=== PATIENT | male | born 1970 | race Caucasian/White ===

== ENCOUNTER → 2016-08-05 | Outpatient (CLI) | payer BC ==
[2016-08-05 09:27] LABS: ALT 53 U/L (21-72); AST 25 U/L (17-59); Alkaline Phosphatase 79 U/L (38-126); Anion Gap 12 mmol/L; Blood Urea Nitrogen 16 mg/dL (9-20); Calcium 9.6 mg/dL (8.4-10.2); Carbon Dioxide 29 mmol/L (22-30); Chloride 100 mmol/L (98-107); Cholesterol 221 mg/dL (<200); Glucose 195 mg/dL (74-99); HDL Cholesterol 31 mg/dL (40-60); Non-African American GFR(MDRD) >60 (>60 ml/min/1.73 sqM); Potassium 4.8 mmol/L (3.5-5.1); Sodium 141 mmol/L (137-145); Total Bilirubin 1.1 mg/dL (0.2-1.3); Total Protein 7.4 g/dL (6.3-8.2); Triglycerides 379 mg/dL (<150)
== END | disposition home or self-care (01) ==
LOC: LABWHC1 08:33
PROVIDERS: ATTEND Internal Medicine Endocrinology, Diabetes & Metabolism
DX: E10.65 Type 1 diabetes mellitus with hyperglycemia (principal); E03.8 Other specified hypothyroidism
CPT/HCPCS: 36415; 80053; 80061; 82043; 84443

== ENCOUNTER → 2017-03-03 | Outpatient (CLI) | payer BC ==
[2017-03-03 08:47] LABS: AST 28 U/L (17-59); Blood Urea Nitrogen 14 mg/dL (9-20); Calcium 9.4 mg/dL (8.4-10.2); Carbon Dioxide 30 mmol/L (22-30); Cholesterol 167 mg/dL (<200); Glucose 166 mg/dL (74-99); Total Bilirubin 0.8 mg/dL (0.2-1.3); Triglycerides 308 mg/dL (<150)
[2017-03-03 08:48] LABS: ALT 51 U/L (21-72); Alkaline Phosphatase 76 U/L (38-126); Anion Gap 11 mmol/L; Chloride 100 mmol/L (98-107); HDL Cholesterol 31 mg/dL (40-60); LDL Cholesterol,Calculated 74 mg/dL (0-99); Potassium 4.7 mmol/L (3.5-5.1); Sodium 141 mmol/L (137-145)
== END | disposition home or self-care (01) ==
LOC: LABWHC1 07:32
PROVIDERS: ATTEND Internal Medicine Endocrinology, Diabetes & Metabolism
DX: E03.8 Other specified hypothyroidism (principal); E10.65 Type 1 diabetes mellitus with hyperglycemia
CPT/HCPCS: 36415; 80053; 80061; 84443

== ENCOUNTER → 2017-06-17 | Outpatient (CLI) | payer BC ==
[2017-06-17 08:30] LABS: ALT 45 U/L (21-72); AST 29 U/L (17-59); Albumin 4.3 g/dL (3.5-5.0); Alkaline Phosphatase 75 U/L (38-126); Anion Gap 11 mmol/L; Blood Urea Nitrogen 17 mg/dL (9-20); Calcium 9.8 mg/dL (8.4-10.2); Carbon Dioxide 33 mmol/L (22-30); Chloride 99 mmol/L (98-107); Cholesterol 167 mg/dL (<200); Glucose 158 mg/dL (74-99); HDL Cholesterol 35 mg/dL (40-60); LDL Cholesterol,Calculated 80 mg/dL (0-99); Potassium 5.4 mmol/L (3.5-5.1); Sodium 143 mmol/L (137-145); Total Bilirubin 1.1 mg/dL (0.2-1.3); Total Protein 7.4 g/dL (6.3-8.2); Triglycerides 262 mg/dL (<150)
[2017-06-17 17:52] LABS: Hemoglobin A1C 7.9 % (4.0-6.0)
== END | disposition home or self-care (01) ==
LOC: LABWHC1 07:49
PROVIDERS: ATTEND Internal Medicine Endocrinology, Diabetes & Metabolism
DX: E10.65 Type 1 diabetes mellitus with hyperglycemia (principal); E03.8 Other specified hypothyroidism
CPT/HCPCS: 36415; 80053; 80061; 82043; 82570; 83036; 84443

== ENCOUNTER 2017-07-06 23:49 | Emergency (ER) | payer BC ==
[2017-07-06 23:59] VITALS: BP 166/97; PULSE 77; RESP 18; TEMP 98
[2017-07-07] MEDS ORDERED: PROPARACAINE 0.5% OPHTH DROPS 15 ML BTL BOTH EYES STA (00:04)
[2017-07-07] MEDS ORDERED: IBUPROFEN 400 MG TAB PO STA (00:34)
--- NOTE | 2017-07-07 00:34 | ED ---
Eye Problem HPI - General Chief complaint: Eye Problems Stated complaint: EYE PROBLEMS Time Seen by Provider: 07/07/17 00:02 Source: patient, family Mode of arrival: ambulatory Limitations: no limitations - History of Present Illness Initial comments: This patient is a 47-year-old man who presents to be evaluated for redness, burning, and integrity feeling to his eyes. The patient states that he had changed the lamp of his UV treatment light. He states that this involved a fair amount of shining the light on his face while it was calibrated. Later in the evening, the patient's daughter noted that his eyes were red. Over the course of the last hour to 2 he has had worsening of a gritty feeling and pain. Patient denies headache. Denies change in vision. No nausea or vomiting. MD chief complaint: eye pain, eye redness -: hour(s) Onset Description: gradual Location: both eyes Place: home If Injury: UV exposure Eye Symptoms: burning, redness, foreign body sensation Severity: moderate Consistency: constant Associated Symptoms: none Treatments Prior to Arrival: none - Related Data Home Medications Medication Instructions Recorded Confirmed Insulin Aspart [NovoLOG] 0 units SQ ACHS 07/06/17 07/07/17 Insulin Detemir [Levemir] 1 unit SQ DAILY 07/06/17 07/07/17 Meclizine [Antivert] 25 mg PO BID 07/06/17 07/07/17 Pravastatin Sodium [Pravachol] 20 mg PO HS 07/07/17 07/07/17 Previous Rx's Medication Instructions Recorded Diclofenac 0.1% Ophth Soln 1 drops BOTH EYES QID PRN #3.5 ml 07/07/17 [Voltaren 0.1% Ophth Soln] Allergies Allergy/AdvReac Type Severity Reaction Status Date / Time ramipril [From Altace] Allergy Swelling Verified 07/06/17 23:59 Review of Systems ROS Statement: Those systems with pertinent positive or pertinent negative responses have been documented in the HPI. ROS Other: All systems not noted in ROS Statement are negative. Constitutional: Denies: fever, chills Eyes: Reports: eye pain, eye discharge (Tearing). Denies: vision change ENT: Denies: congestion Respiratory: Denies: cough, dyspnea Gastrointestinal: Denies: nausea, vomiting Neurological: Denies: headache, weakness, numbness, confusion Past Medical History Past Medical History: Diabetes Mellitus Additional Past Medical History / Comment(s): menierres History of Any Multi-Drug Resistant Organisms: None Reported Past Surgical History: Hernia Repair Past Psychological History: No Psychological Hx Reported Smoking Status: Never smoker Past Alcohol Use History: None Reported Past Drug Use History: None Reported General Exam Limitations: no limitations General appearance: alert, in no apparent distress Head exam: Present: atraumatic, normocephalic Eye exam: Present: PERRL, EOMI, conjunctival injection. Absent: scleral icterus , nystagmus, periorbital swelling, periorbital tenderness ENT exam: Present: normal oropharynx Skin exam: Present: warm, dry, intact, normal color. Absent: rash Course Vital Signs 07/06/17 23:54 Temperature 98 F Pulse Rate 77 Respiratory 18 Rate Blood Pressure 166/97 O2 Sat by Pulse 98 Oximetry Medical Decision Making - Medical Decision Making Proparacaine drops instilled bilaterally which resolved the patient's symptoms. I did perform the slit lamp exam for the patient. Lids are normal bilaterally. The cornea is thin and clear. There is conjunctival injection bilaterally. Sclera normal. Anterior chambers are clear , there is no cell or flare. I measured the intraocular pressure bilaterally using the iCare device. Pressure the right eye 15 mmHg, pressure in the left eye 17 mmHg. Patient's history and physical exam consistent with some UV keratitis. Will treat with anti-inflammatory and patient to follow with ophthalmology. Discussed return parameters. Disposition Clinical Impression: Photokeratitis Disposition: HOME SELF-CARE Condition: Good Instructions: [place] (ED) Prescriptions: Diclofenac 0.1% Ophth Soln [Voltaren 0.1% Ophth Soln] 1 drops BOTH EYES QID PRN #3.5 ml PRN Reason: Pain Is patient prescribed a controlled substance at d/c from ED?: No Referrals: Jean Flores MD [REFERRING] - 1-2 days Hero Tong MD [Primary Care Provider] - 1-2 days
[2017-07-07] MEDS ORDERED: DICLOFENAC 0.1% OPHTH SOLN 2.5 ML BTL BOTH EYES STA (00:58)
== END 2017-07-07 00:53 | disposition home or self-care (01) ==
LOC: EC 23:49
DX: H16.133 Photokeratitis, bilateral (principal); E11.9 Type 2 diabetes mellitus without complications; Z88.8 Allergy status to other drugs, medicaments and biological substances; Z79.4 Long term (current) use of insulin; Z79.899 Other long term (current) drug therapy
CPT/HCPCS: 99282

== ENCOUNTER → 2017-10-21 | Outpatient (CLI) | payer BC ==
[2017-10-21 08:09] LABS: ALT 42 U/L (21-72); AST 25 U/L (17-59); Alkaline Phosphatase 69 U/L (38-126); Anion Gap 7 mmol/L; Blood Urea Nitrogen 14 mg/dL (9-20); Calcium 9.5 mg/dL (8.4-10.2); Carbon Dioxide 32 mmol/L (22-30); Chloride 101 mmol/L (98-107); Cholesterol 181 mg/dL (<200); Glucose 149 mg/dL (74-99); HDL Cholesterol 33 mg/dL (40-60); LDL Cholesterol,Calculated 97 mg/dL (0-99); Potassium 4.6 mmol/L (3.5-5.1); Sodium 140 mmol/L (137-145); Total Protein 7.2 g/dL (6.3-8.2); Triglycerides 256 mg/dL (<150)
== END | disposition home or self-care (01) ==
LOC: LABWHC1 07:26
PROVIDERS: ATTEND Internal Medicine Endocrinology, Diabetes & Metabolism
DX: E10.65 Type 1 diabetes mellitus with hyperglycemia (principal); E03.8 Other specified hypothyroidism
CPT/HCPCS: 36415; 80053; 80061; 82043; 82570; 83036; 84443

== ENCOUNTER → 2018-05-03 | Outpatient (CLI) | payer BC ==
[2018-05-03 17:25] LABS: Albumin 4.3 g/dL (3.80-4.90); Albumin/Globulin Ratio 1.65 (1.60-3.17); Anion Gap 7.6 mmol/L (4.00-12.00); Calcium 9.6 mg/dL (8.7-10.3); Carbon Dioxide 26.4 mmol/L (21.6-31.8); Globulin 2.6 g/dL (1.6-3.3); LDL Cholesterol,Calculated 88.8 mg/dL (0.0-131.0); Potassium 4.8 mmol/L (3.5-5.5); Total Protein 6.9 g/dL (6.2-8.2); VLDL Calculation 44.2 mg/dL (5.00-40.00)
[2018-05-03 19:11] LABS: Hemoglobin A1C 7.9 % (4.0-6.0)
== END ==
LOC: LABWHC1 08:01
PROVIDERS: ATTEND Internal Medicine Endocrinology, Diabetes & Metabolism
DX: E10.65 Type 1 diabetes mellitus with hyperglycemia (principal)
CPT/HCPCS: 36415; 80053; 80061; 82043; 82570; 83036; 84443

== ENCOUNTER → 2019-02-14 | Outpatient (CLI) | payer BC ==
--- NOTE | 2019-02-15 06:31 | XR ---
EXAMINATION TYPE: XR abdomen 2V DATE OF EXAM: 02/14/2019 CLINICAL HISTORY: Abdominal distention and pressure. TECHNIQUE: Supine and upright views of the abdomen are obtained. COMPARISON: None. FINDINGS: Scattered gas is seen in non-distended small bowel loops. Gas and fecal material is seen in non-distended colon. There is no visceromegaly, pneumoperitoneum, or abnormal calcification appr eciated. The lung bases are clear and the osseous structures are intact. IMPRESSION: Overall nonobstructive bowel gas pattern.
== END | disposition home or self-care (01) ==
LOC: RADXRMAIN 16:54
PROVIDERS: ATTEND Nurse Practitioner Family
DX: R10.9 Unspecified abdominal pain (principal)
CPT/HCPCS: 74019

== ENCOUNTER → 2019-11-07 | Outpatient (CLI) | payer BC ==
--- NOTE | 2019-11-07 13:41 | XR ---
EXAMINATION TYPE: XR chest 2V DATE OF EXAM: 11/07/2019 COMPARISON: NONE HISTORY: Chest pain TECHNIQUE: Frontal and lateral views of the chest are obtained. FINDINGS: There is no focal air space opacity. No evidence for pneumothorax. No pleural effusion. The cardiac silhouette size is within normal limits. The osseous structures are grossly intact. IMPRESSION: 1. No acute cardiopulmonary process.
== END | disposition home or self-care (01) ==
LOC: RADXRMAIN 13:15
PROVIDERS: ATTEND Internal Medicine Geriatric Medicine
DX: R06.02 Shortness of breath (principal)
CPT/HCPCS: 71046

== ENCOUNTER → 2019-11-11 | Outpatient (CLI) | payer BC ==
--- NOTE | 2019-11-11 14:15 | EST ---
EXERCISE STRESS AGE: 49 SEX: Male HT: 6'3" WT: 507 lbs. PROTOCOL: [place] STAGE: 3 DURATION OF EXERCISE: 9 minutes HEART RATE REST: 70 BLOOD PRESSURE REST: 138/86 MAXIMUM HEART RATE ACHIEVED: 161 MAXIMUM BLOOD PRESSURE: 186/78 85% MPHR: 145 100% MPHR: 171 METS: 10.3 INDICATIONS: Shortness of breath, angina. CLINICAL INFORMATION: Baseline EKG revealed normal sinus rhythm without significant ST-T changes. There was slight leftward axis. Patient walked on a standard [place] protocol for 9 minutes, achieved a maximal heart rate of 161 beats per minute which is well above 85% of predicted maximal. He developed fatigue, shortness of breath, but did not have angina or any significant arrhythmia. By EKG criteria, this is a negative stress test with fair exercise capacity. Baseline echo images revealed normal wall motion and wall thickening of all segments. At peak exercise there was good augmentation of left ventricular wall motion and wall thickening of all segments suggesting that there is no evidence of stress-induced ischemia on this study. FINAL IMPRESSION: 1. By EKG criteria, this is a negative stress test with fair exercise capacity. 2. Normal stress echocardiogram. MMODL / IJN: [id number] /
== END | disposition home or self-care (01) ==
LOC: RADNMMAIN 09:06
PROVIDERS: ATTEND Internal Medicine Geriatric Medicine
DX: I20.9 Angina pectoris, unspecified (principal)
CPT/HCPCS: 93351

== ENCOUNTER → 2020-09-05 | Outpatient (CLI) | payer BC ==
[2020-09-05 23:32] LABS: LDL Cholesterol,Calculated 86.2 mg/dL (0.0-131.0); VLDL Calculation 49.8 mg/dL (5.00-40.00)
[2020-09-05 23:33] LABS: African American GFR (CKD) 73.7 (60.0-200.0); Albumin 4.3 g/dL (3.80-4.90); Albumin/Globulin Ratio 1.54 (1.60-3.17); Anion Gap 9.6 mmol/L (4.00-12.00); BUN/Creat Ratio 13.08 Ratio (12.00-20.00); Calcium 9.4 mg/dL (8.7-10.3); Carbon Dioxide 29.4 mmol/L (21.6-31.8); Globulin 2.8 g/dL (1.6-3.3); Non-African American GFR(CKD) 63.6 (60.0-200.0); Total Protein 7.1 g/dL (6.2-8.2)
[2020-09-05 23:43] LABS: Prostate Specific Antigen 0.7 ng/mL (0.0-3.5)
== END | disposition home or self-care (01) ==
LOC: LABWHC1 08:10
PROVIDERS: ATTEND Internal Medicine Geriatric Medicine
DX: E03.9 Hypothyroidism, unspecified (principal); N40.0 Benign prostatic hyperplasia without lower urinary tract symptoms; E78.5 Hyperlipidemia, unspecified
CPT/HCPCS: 36415; 80053; 80061; 84153; 84439; 84443

== ENCOUNTER → 2021-04-22 | Outpatient (CLI) | payer BC ==
[2021-04-22 10:39] LABS: ALT 33 U/L (10-49); AST 21 U/L (14-35); African American GFR (CKD) 90.2 (60.0-200.0); Albumin 4.4 g/dL (3.8-4.9); Albumin/Globulin Ratio 1.69 (1.60-3.17); Alkaline Phosphatase 93 U/L (41-126); BUN/Creat Ratio 16.91 Ratio (12.00-20.00); Blood Urea Nitrogen 18.6 mg/dL (9.0-27.0); Calcium 9.7 mg/dL (8.7-10.3); Chloride 101 mmol/L (96-109); Globulin 2.6 g/dL (1.6-3.3); Glucose 227 mg/dL (70-110); LDL Cholesterol,Calculated 98.7 mg/dL (0.0-131.0); Non-African American GFR(CKD) 77.9 (60.0-200.0); Potassium 4.5 mmol/L (3.5-5.5); Sodium 138 mmol/L (135-145)
[2021-04-22 10:45] LABS: Microalbumin Creatinine Ratio <30 mg/g Creat (0-30); Urine Creatinine 81.9 mg/dL (39.0-259.0)
== END | disposition home or self-care (01) ==
LOC: LABWHC1 07:12
PROVIDERS: ATTEND Internal Medicine Endocrinology, Diabetes & Metabolism
DX: E10.65 Type 1 diabetes mellitus with hyperglycemia (principal)
CPT/HCPCS: 36415; 80053; 80061; 82043; 82570; 83036; 84443

== ENCOUNTER → 2022-01-10 | Outpatient (CLI) | payer BC ==
[2022-01-10 15:10] LABS: ALT 30 U/L (10-49); AST 17 U/L (14-35); African American GFR (CKD) 91.6 (60.0-200.0); Albumin 4.5 g/dL (3.8-4.9); Albumin/Globulin Ratio 1.54 (1.60-3.17); Alkaline Phosphatase 100 U/L (41-126); BUN/Creat Ratio 14.07 Ratio (12.00-20.00); Blood Urea Nitrogen 15.2 mg/dL (9.0-27.0); Calcium 10.2 mg/dL (8.7-10.3); Chloride 102 mmol/L (96-109); Chol/HDL Ratio 4.55 Ratio; Globulin 2.9 g/dL (1.6-3.3); Glucose 129 mg/dL (70-110); LDL Cholesterol,Calculated 114.4 mg/dL (0.0-131.0); Non-African American GFR(CKD) 79.1 (60.0-200.0); Potassium 4.3 mmol/L (3.5-5.5); Sodium 144 mmol/L (135-145); Total Protein 7.4 g/dL (6.2-8.2)
== END | disposition home or self-care (01) ==
LOC: LABWHC1 07:23
PROVIDERS: ATTEND Internal Medicine Endocrinology, Diabetes & Metabolism
DX: E10.65 Type 1 diabetes mellitus with hyperglycemia (principal)
CPT/HCPCS: 36415; 80053; 80061; 82043; 82570; 83036; 84443

== ENCOUNTER → 2022-08-05 | Outpatient (CLI) | payer BC ==
--- NOTE | 2022-08-05 10:49 | US ---
EXAMINATION TYPE: US kidneys/renal and bladder DATE OF EXAM: 08/05/2022 COMPARISON: NONE CLINICAL INDICATION: Male, 52 years old with history of R35.89 POLYURIA; Polyuria EXAM MEASUREMENTS: Right Kidney: 9.6 x 4.0 x 3.8 cm Left Kidney: 12.7 x 5.7 x 4.6 cm Multiple grayscale and color Doppler ultrasound images of the kidneys urinary bladder were obtained. Right Kidney: No hydronephrosis or masses seen Left Kidney: Anechoic area lower pole 5.8 x 3.9 x 4.1 cm Bladder: anechoic Bilateral Jets seen: Yes There is no evidence for hydronephrosis at this point in time. No nephrolithiasis is seen. No solid masses are identified. Simple appearing thin-walled cyst within the lower pole of the left kidney m easuring up to 5.8 cm. The urinary bladder is anechoic. Bilateral ureteral jets are seen. The visual ized portions of the liver hyperechoic. IMPRESSION: 1. No hydronephrosis or nephrolithiasis. 2. Left renal lower pole simple cyst. 3. Hepatic steatosis.
[2022-08-05 18:32] LABS: T4, Free (Free Thyroxine) 1.63 ng/dL (0.80-1.80)
[2022-08-05 18:39] LABS: ALT 30 U/L (10-49); AST 19 U/L (14-35); Albumin 4.5 d/dL (3.8-4.9); Albumin/Globulin Ratio 1.67 Ratio (1.60-3.17); Alkaline Phosphatase 93 U/L (41-126); BUN/Creat Ratio 15.17 Ratio (12.00-20.00); Blood Urea Nitrogen 18.2 mg/dL (9.0-27.0); Calcium 9.8 mg/dL (8.7-10.3); Carbon Dioxide 27.2 mmol/L (21.6-31.8); Chloride 98 mmol/L (96-109); Chol/HDL Ratio 3.91 Ratio; Globulin 2.7 d/dL (1.6-3.3); Glucose 132 mg/dL (70-110); LDL Cholesterol,Calculated 97.8 mg/dL (0.0-131.0); Potassium 4.9 mmol/L (3.5-5.5); Sodium 141 mmol/L (135-145); Total Bilirubin 0.9 mg/dL (0.3-1.2); Total Protein 7.2 d/dL (6.2-8.2)
[2022-08-06 00:13] LABS: Microalbumin Creatinine Ratio <54 mg/g Cr (0-30); Urine Creatinine 22.4 mg/dL (39.0-259.0)
== END | disposition home or self-care (01) ==
LOC: RADUSWWP 10:14
PROVIDERS: ATTEND Internal Medicine Geriatric Medicine
DX: N28.1 Cyst of kidney, acquired (principal); E10.9 Type 1 diabetes mellitus without complications; K76.0 Fatty (change of) liver, not elsewhere classified; N40.0 Benign prostatic hyperplasia without lower urinary tract symptoms; E03.9 Hypothyroidism, unspecified; E10.65 Type 1 diabetes mellitus with hyperglycemia; R35.89 Other polyuria
CPT/HCPCS: 76770; 80053; 80061; 82043; 82570; 83036; 84153; 84439; 84443

== ENCOUNTER → 2022-09-26 | Outpatient (CLI) | payer BC ==
[2022-09-26 11:27] LABS: C-Peptide 1.27 ng/mL (0.81-3.85)
== END | disposition home or self-care (01) ==
LOC: LABWHC1 07:02
PROVIDERS: ATTEND Family Medicine
DX: E10.65 Type 1 diabetes mellitus with hyperglycemia (principal)
CPT/HCPCS: 36415; 82947; 83519; 83525; 84681

== ENCOUNTER 2023-01-27 09:10 | Day surgery (SDC) | payer BC ==
[2023-01-23 09:54] VITALS: BMI 30.6
[~2023-01-27 09:10] MED LIST: LACTATED RINGERS 1,000 ML IV SCH
[2023-01-27 09:59] LABS: Glucose,Whole Blood 160 mg/dL (70-110)
[2023-01-27] MEDS ORDERED: PROPOFOL 10 MG/ML 20 ML VIAL IV ONE (10:08)
[2023-01-27 10:14] VITALS: TEMP 97.8
--- NOTE | 2023-01-27 10:27 | P.PCN ---
Date of Procedure: 01/27/23 Procedure(s) Performed: BRIEF HISTORY: Patient is a 52-year-old pleasant white male scheduled for an elective colonoscopy as a part of screening for colon cancer. PROCEDURE PERFORMED: Colonoscopy biopsy. PREOPERATIVE DIAGNOSIS: Screening for colon cancer. IV sedation per Anesthesia. PROCEDURE: After informed consent was obtained, the patient, was brought into the endoscopy unit. IV sedation was administered by Anesthesia under continuous monitoring. Digital rectal examination was normal. Initially the Olympus CF-160 flexible video colonoscope was then inserted in the rectum, gradually advanced into the cecum without any difficulty. Careful examination was performed as the scope was gradually being withdrawn. Ileocecal valve and the appendiceal orifice were visualized and appeared normal. Prep was excellent. Mucosa of the cecum, as a millimeters sessile polyp that was removed by cold biopsy. In the hepatic flexure there was another 3 mm polyp that was removed by cold biopsy. Rest of the ascending colon, transverse colon, descending colon, sigmoid colon, and rectum appeared normal. Retroflexion was performed in the rectum and no lesions were seen. The patient tolerated the procedure well. IMPRESSION: 3 mm cecal polyp status post cold biopsy 3 mm hepatic flexure colon polyp status post cold biopsy RECOMMENDATIONS: Findings of this examination were discussed with the patient as well as his family. He was advised to follow with the biopsy result. The biopsies adenoma he can have a repeat coloscopy in 5 years.
[2023-01-27 10:41] LABS: Glucose,Whole Blood 155 mg/dL (70-110)
[2023-01-27 11:03] VITALS: BP 139/90; PULSE 100; RESP 16
== END 2023-01-27 11:16 | disposition home or self-care (01) ==
LOC: ORWHC2ENDO 09:10
PROVIDERS: ATTEND Internal Medicine Gastroenterology
DX: Z12.11 Encounter for screening for malignant neoplasm of colon (principal); D12.0 Benign neoplasm of cecum; D12.3 Benign neoplasm of transverse colon; E78.5 Hyperlipidemia, unspecified; E11.9 Type 2 diabetes mellitus without complications; E03.9 Hypothyroidism, unspecified; Z79.890 Hormone replacement therapy; K21.9 Gastro-esophageal reflux disease without esophagitis; Z79.899 Other long term (current) drug therapy; Z98.890 Other specified postprocedural states
CPT/HCPCS: 88305; 45380; J2704

== ENCOUNTER → 2023-04-25 | Outpatient (CLI) | payer BC ==
[2023-04-25 23:36] LABS: Chol/HDL Ratio 4.12 Ratio; LDL Cholesterol,Calculated 80.4 mg/dL (0.0-131.0); Magnesium 1.8 mg/dL (1.5-2.4)
[2023-04-25 23:37] LABS: ALT 40 U/L (10-49); AST 27 U/L (14-35); Albumin 4.4 g/dL (3.8-4.9); Albumin/Globulin Ratio 1.57 Ratio (1.60-3.17); Alkaline Phosphatase 97 U/L (41-126); BUN/Creat Ratio 11.73 Ratio (12.00-20.00); Blood Urea Nitrogen 12.9 mg/dL (9.0-27.0); Calcium 9.9 mg/dL (8.7-10.3); Carbon Dioxide 31.4 mmol/L (21.6-31.8); Chloride 102 mmol/L (96-109); Globulin 2.8 g/dL (1.6-3.3); Glucose 153 mg/dL (70-110); Phosphorus 3.2 mg/dL (2.4-5.1); Potassium 4.4 mmol/L (3.5-5.5); Prostate Specific Antigen 1.18 ng/mL (0.000-3.500); Sodium 143 mmol/L (135-145); T4, Free (Free Thyroxine) 1.08 ng/dL (0.80-1.80); Total Protein 7.2 g/dL (6.2-8.2); Uric Acid 4.6 mg/dL (3.7-8.7)
[2023-04-25 23:44] LABS: Microalbumin Creatinine Ratio <29 mg/g Cr (0-30); Urine Creatinine 40.9 mg/dL (39.0-259.0)
[2023-04-26 06:27] LABS: Basophils # (A) 0.05 X 10*3/uL (0.00-0.10); Basophils % (A) 0.8 %; Eosinophils % (A) 4.8 %; HCT 50.1 % (39.6-50.0); HGB 17.2 g/dL (13.0-17.0); Lymphocytes # (A) 1.81 X 10*3/uL (0.90-5.00); Lymphocytes % (A) 29.1 %; MCH 29.4 pg (27.0-32.0); MCHC 34.3 g/dL (32.0-37.0); MCV 85.6 FL (80.0-97.0); Mean Platelet Volume 12.2 FL (9.5-12.2); Monocytes # (A) 0.63 X 10*3/uL (0.20-1.00); Monocytes % (A) 10.1 %; NRBC Per 100 WBC 0 X 10*3/uL (0.00-0.01); Neutrophils % (A) 54.7 %; Platelet Count 251 X 10*3/uL (140-440); RBC 5.85 X 10*6/uL (4.40-5.60); RDW 12.3 % (11.5-14.5); WBC 6.22 X 10*3/uL (4.50-10.00)
== END | disposition home or self-care (01) ==
LOC: LABWHC1 10:13
PROVIDERS: ATTEND Internal Medicine Geriatric Medicine
DX: Z00.00 Encounter for general adult medical examination without abnormal findings (principal); E10.9 Type 1 diabetes mellitus without complications; E03.9 Hypothyroidism, unspecified; E78.5 Hyperlipidemia, unspecified; N18.9 Chronic kidney disease, unspecified; N40.0 Benign prostatic hyperplasia without lower urinary tract symptoms
CPT/HCPCS: 36415; 80053; 80061; 82043; 82570; 83036; 83735; 84100; 84153; 84439; 84443; 84550; 85025; 86900; 86901

== ENCOUNTER → 2024-05-24 | Outpatient (CLI) | payer BC ==
[2024-05-24 10:18] LABS: Basophils # (A) 0.06 X 10*3/uL (0.00-0.10); Eosinophils # (A) 0.36 X 10*3/uL (0.04-0.35); Eosinophils % (A) 5.8 %; HCT 49.3 % (39.6-50.0); HGB 16.7 g/dL (13.0-17.0); Lymphocytes # (A) 1.73 X 10*3/uL (0.90-5.00); Lymphocytes % (A) 27.6 %; MCH 28.4 pg (27.0-32.0); MCHC 33.9 g/dL (32.0-37.0); Mean Platelet Volume 11.6 FL (9.5-12.2); Monocytes # (A) 0.65 X 10*3/uL (0.20-1.00); Monocytes % (A) 10.4 %; NRBC Per 100 WBC 0 X 10*3/uL (0.00-0.01); Neutrophils # (A) 3.43 X 10*3/uL (1.80-7.70); Neutrophils % (A) 54.7 %; Platelet Count 220 X 10*3/uL (140-440); RBC 5.87 X 10*6/uL (4.40-5.60); RDW 12.2 % (11.5-14.5); WBC 6.26 X 10*3/uL (4.50-10.00)
[2024-05-24 11:19] LABS: ALT 39 U/L (10-49); AST 30 U/L (14-35); Albumin 4.3 g/dL (3.8-4.9); Albumin/Globulin Ratio 1.59 Ratio (1.60-3.17); Alkaline Phosphatase 96 U/L (41-126); BUN/Creat Ratio 14.75 Ratio (12.00-20.00); Blood Urea Nitrogen 17.7 mg/dL (9.0-27.0); Calcium 9.6 mg/dL (8.7-10.3); Carbon Dioxide 28.6 mmol/L (21.6-31.8); Chloride 103 mmol/L (96-109); Chol/HDL Ratio 4.03 Ratio; Globulin 2.7 g/dL (1.6-3.3); Glucose 183 mg/dL (70-110); LDL Cholesterol,Calculated 75.1 mg/dL (0.0-131.0); Potassium 5.1 mmol/L (3.5-5.5); Prostate Specific Antigen 1.38 ng/mL (0.000-3.500); Sodium 141 mmol/L (135-145); T4, Free (Free Thyroxine) 1.26 ng/dL (0.80-1.80); Total Bilirubin 0.9 mg/dL (0.3-1.2)
== END | disposition home or self-care (01) ==
LOC: LABWHC1 07:15
PROVIDERS: ATTEND Internal Medicine Geriatric Medicine
DX: E11.22 Type 2 diabetes mellitus with diabetic chronic kidney disease (principal); N18.2 Chronic kidney disease, stage 2 (mild); N40.0 Benign prostatic hyperplasia without lower urinary tract symptoms; E03.9 Hypothyroidism, unspecified
CPT/HCPCS: 36415; 80053; 80061; 83036; 84153; 84439; 84443; 85025